=== PATIENT | male | born 1955 | race Caucasian/White ===

== ENCOUNTER → 2020-05-19 | Outpatient (CLI) | payer OTHER | LOC: SLEEP 15:08 | DX: G47.33 Obstructive sleep apnea (adult) (pediatric) (principal) | CPT/HCPCS: 95810 ==

== ENCOUNTER 2021-04-15 10:25 | Emergency (ER) | payer OTHER ==
[2021-04-15 11:06] LABS: HEMOGLOBIN 14.4 gm/dl (14.0-17.5); RED BLOOD COUNT 5.16 M/UL (4.20-5.50); WHITE BLOOD COUNT 7.3 K/UL (4.5-11.0)
[2021-04-15 12:14] LABS: BUN/CREATININE RATIO 21 (0-10)
== END 2021-04-15 21:17 | disposition short-term general hospital (02) ==
LOC: ER1 10:25
PROVIDERS: Emergency Medicine
DX: G45.9 Transient cerebral ischemic attack, unspecified (principal); I10 Essential (primary) hypertension; Z20.822 Contact with and (suspected) exposure to COVID-19
CPT/HCPCS: 36415; 70450; 70496; 70498; 71045; 80053; 82550; 82553; 82962; 83874; 84484; 85025; 85610; 85730; 93005; 99285; Q9967; U0002

== ENCOUNTER → 2021-08-30 | Outpatient (CLI) | payer OTHER | LOC: HEART 5 15:16 | DX: Z86.73 Personal history of transient ischemic attack (TIA), and cerebral infarction without residual deficits (principal) ==